=== PATIENT | female | born 1980 | race Caucasian/White ===

== ENCOUNTER 2021-05-12 00:15 | Observation (INO) | payer OTHER ==
[~2021-05-12] VITALS: Ht 160 cm; Wt 111.6 kg
[~2021-05-12 00:15] MED LIST: IBUPROFEN600 MG PO; Magic Mouth Wash PO; PREDNISONE 50 M50 MG PO; PROTONIX 40 MG40 M1 PO; TORADOL 10 MG T10 MG PO; ZOFRAN4 MG PO
[2021-05-12 00:47] LABS: HEMOGLOBIN 14.8 gm/dl (12.3-15.3); RED BLOOD COUNT 5.46 M/UL (4.00-5.10); WHITE BLOOD COUNT 14.8 K/UL (4.5-11.0)
[2021-05-12 01:12] LABS: BUN/CREATININE RATIO 15 (0-10)
[2021-05-12] MEDS ORDERED: FLONASE 0.05% N16 GM (03:36)
[2021-05-12] MEDS ORDERED: PRAMIPEXOLE0.125 MG PO (03:36)
[2021-05-12] MEDS ORDERED: HYDROCHLOROTH12.5 MG PO (03:37)
[2021-05-12] MEDS ORDERED: ATORVASTATIN CA10 MG PO (03:37)
[2021-05-12] MEDS ORDERED: GLUCOPHAGE XR500 M1 PO (03:37)
[2021-05-12] MEDS ORDERED: BUSPIRONE HCL5 MG PO (03:38)
[2021-05-12] MEDS ORDERED: CETIRIZINE HCL10 MG PO (03:38)
[2021-05-12] MEDS ORDERED: ESCITALOPRAM OX10 MG PO (03:55)
[2021-05-13 08:01] LABS: HEMOGLOBIN 13.6 gm/dl (12.3-15.3); RED BLOOD COUNT 5.41 M/UL (4.00-5.10)
[2021-05-13 08:14] LABS: BUN/CREATININE RATIO 25 (0-10)
[2021-05-13 10:28] LABS: WHITE BLOOD COUNT 10.6 K/UL (4.5-11.0)
[2021-05-13] MEDS ORDERED: BETAPACE 80MG T80 MG PO (10:45)
== END 2021-05-13 11:39 | disposition home or self-care (01) ==
LOC: ER1 00:15 → CDU 02:22 → PROG CARE 02:22
PROVIDERS: Emergency Medicine; ADMIT Internal Medicine
DX: I47.1 Supraventricular tachycardia (principal); I11.9 Hypertensive heart disease without heart failure; E11.9 Type 2 diabetes mellitus without complications; E66.01 Morbid (severe) obesity due to excess calories; E78.5 Hyperlipidemia, unspecified; F41.9 Anxiety disorder, unspecified; F32.9 Major depressive disorder, single episode, unspecified; I07.1 Rheumatic tricuspid insufficiency; F17.210 Nicotine dependence, cigarettes, uncomplicated; I95.9 Hypotension, unspecified; Z68.41 Body mass index [BMI] 40.0-44.9, adult; Z79.1 Long term (current) use of non-steroidal anti-inflammatories (NSAID); Z79.84 Long term (current) use of oral hypoglycemic drugs; Z79.899 Other long term (current) drug therapy
CPT/HCPCS: ECHO; 36415; 71045; 80048; 80053; 80061; 82550; 82553; 82962; 83036; 83735; 83874; 83880; 84100; 84439; 84443; 84484; 84550; 84702; 85025; 85027; 93005; 93270; 93306; 96372; 99285; 99406; G0378; J0153; J1650

== ENCOUNTER 2022-01-19 23:23 | Emergency (ER) | payer OTHER ==
[~2022-01-19 23:23] MED LIST changes: +ATORVASTATIN CA10 MG PO; +BETAPACE 80MG T80 MG PO; +BUSPIRONE HCL5 MG PO; +CETIRIZINE HCL10 MG PO; +ESCITALOPRAM OX10 MG PO; +FLONASE 0.05% N16 GM; +GLUCOPHAGE XR500 M1 PO; +HYDROCHLOROTH12.5 MG PO; +PRAMIPEXOLE0.125 MG PO
[2022-01-20 00:13] LABS: HEMOGLOBIN 13.6 gm/dl (12.3-15.3); RED BLOOD COUNT 5.28 M/UL (4.00-5.10); WHITE BLOOD COUNT 14.4 K/UL (4.5-11.0)
[2022-01-20 00:18] LABS: BUN/CREATININE RATIO 15 (0-10)
[2022-01-20] MEDS ORDERED: OMNICEF 300 MG300 MG PO (01:02)
== END 2022-01-20 01:38 | disposition home or self-care (01) ==
LOC: ER1 23:23
PROVIDERS: Student in an Organized Health Care Education/Training Program
DX: N39.0 Urinary tract infection, site not specified (principal); E11.9 Type 2 diabetes mellitus without complications; F17.210 Nicotine dependence, cigarettes, uncomplicated; Z79.84 Long term (current) use of oral hypoglycemic drugs
CPT/HCPCS: 80053; 81001; 83690; 84703; 85025; 87077; 87086; 87186; 96374; 99284; J0696